=== PATIENT | female | born 1945 | race Caucasian/White ===

== ENCOUNTER → 2024-05-19 14:59 | Outpatient (REF) | payer MEDICARE, OTHER, SELFPAY | LOC: WDC 14:59 | PROVIDERS: ATTENDING PHYSICIAN Physician Assistant | DX: Z12.31 Encounter for screening mammogram for malignant neoplasm of breast (principal) | CPT/HCPCS: 77063; 77067 ==

== ENCOUNTER → 2024-05-20 12:37 | Outpatient (REF) | payer MEDICARE, OTHER, SELFPAY | LOC: EMG 12:37 | PROVIDERS: ATTENDING PHYSICIAN Physician Assistant | DX: R20.0 Anesthesia of skin (principal) | CPT/HCPCS: 95886; 95911 ==

== ENCOUNTER → 2024-06-25 15:08 | Outpatient (REF) | payer MEDICARE, OTHER, SELFPAY ==
[2024-06-25 16:12] LABS: % Eosinophils 1.3 % (0-6); % Immature Granulocytes 0.3 % (0-0.5); % Lymphocytes 46.5 % (20.5-51.1); % Monocytes 15.8 % (1.7-9.3); % Neutrophils 35.1 % (42.2-75.2); Absolute Lymphocytes 1.4 10^3/uL (1.2-3.4); Absolute Monocytes 0.5 10^3/uL (0.1-0.6); Absolute Neutrophils 1.1 10^3/uL (1.4-6.5); Hematocrit 35.6 % (37.0-47.0); Hemoglobin 11.7 g/dL (12.0-16.0); Mean Corp Hgb Conc. 32.9 g/dL (33.0-37.0); Mean Corpuscular Hgb 30.1 pg (27.0-31.0); Mean Corpuscular Volume 91.5 fL (81.0-99.0); Mean Platelet Volume 10.8 fL (7.4-10.4); Nucleated Red Blood Cells % 0 %; Platelet Count 187 10^3/uL (130-400); Red Blood Cell Count 3.89 10^6/uL (4.20-5.40); Red Cell Dist. Width 13.8 % (11.5-14.5); White Blood Cell Count 3.1 10^3/uL (4.8-10.8)
== END ==
LOC: REG 15:08
PROVIDERS: ATTENDING PHYSICIAN Internal Medicine Hematology & Oncology; FAMILY PHYSICIAN Physician Assistant
DX: D70.9 Neutropenia, unspecified (principal); D72.819 Decreased white blood cell count, unspecified
CPT/HCPCS: 36415; 85025

== ENCOUNTER → 2024-07-24 09:52 | Outpatient (REF) | payer MEDICARE, OTHER, SELFPAY ==
[2024-07-24 11:03] LABS: % Basophils 0.7 % (0-2); % Eosinophils 1.5 % (0-6); % Immature Granulocytes 0.4 % (0-0.5); % Lymphocytes 46.3 % (20.5-51.1); % Monocytes 15.6 % (1.7-9.3); % Neutrophils 35.5 % (42.2-75.2); Absolute Lymphocytes 1.3 10^3/uL (1.2-3.4); Absolute Monocytes 0.4 10^3/uL (0.1-0.6); Hematocrit 37.4 % (37.0-47.0); Hemoglobin 12.3 g/dL (12.0-16.0); Mean Corp Hgb Conc. 32.9 g/dL (33.0-37.0); Mean Corpuscular Volume 91.2 fL (81.0-99.0); Nucleated Red Blood Cells % 0 %; Platelet Count 173 10^3/uL (130-400); Red Cell Dist. Width 13.8 % (11.5-14.5); White Blood Cell Count 2.7 10^3/uL (4.8-10.8)
[2024-07-26 07:51] LABS: ANA, IgG Reflex to HEp-2 None Detected (None Detected)
== END ==
LOC: REG 09:52
PROVIDERS: ATTENDING PHYSICIAN Internal Medicine Hematology & Oncology; FAMILY PHYSICIAN Family Medicine
DX: D70.9 Neutropenia, unspecified (principal); D72.819 Decreased white blood cell count, unspecified
CPT/HCPCS: 36415; 85025; 86038; 86430

== ENCOUNTER 2024-10-26 13:23 | Emergency (ER) | payer MEDICARE, OTHER, SELFPAY ==
[2024-10-26 13:31] VITALS: BP 145/65
[2024-10-26 14:08] LABS: Hematocrit 35.1 % (37.0-47.0); Hemoglobin 11.6 g/dL (12.0-16.0); Mean Corp Hgb Conc. 33.0 g/dL (33.0-37.0); Mean Corpuscular Volume 90.2 fL (81.0-99.0); Platelet Count 187 10^3/uL (130-400); Red Cell Dist. Width 13.5 % (11.5-14.5)
[2024-10-26 14:14] LABS: ALT (SGPT) 19 U/L (0-35); AST (SGOT) 31 U/L (14-36); Albumin 4.5 g/dl (3.5-5.0); Alkaline Phosphatase 72 U/L (38-126); Blood Urea Nitrogen 20 mg/dl (7-17); Calcium 9.4 mg/dl (8.4-10.2); Carbon Dioxide 30 mmol/L (22-30); Chloride 105 mmol/L (98-107); Glucose 94 mg/dl (70-99); Potassium 4.1 mmol/L (3.5-5.1); Sodium 138 mmol/L (135-145); Total Protein 6.8 g/dl (6.3-8.2); eGFR > 60.00
[2024-10-26 14:25] LABS: Troponin I < 0.012 ng/ml
[2024-10-26 14:40] LABS: Nucleated Red Blood Cells % 0 %
--- NOTE | 2024-10-26 18:48 | ED.GENMED ---
History of Present Illness
<VINOD Alonso - Last Filed: 10/26/24 19:08>
General
Chief Complaint: Cardiac Symptoms
Source: patient and family (sister)
Time Seen by Provider: 10/26/24 18:35
History of Present Illness
History of Present Illness:
Patient is a 79 y/o F with PMHx of HTN who presents to the ED after experiencing palpitations yesterday night. Patient reports palpitations began about 11pm, lasted for 20 minutes, felt like a flutter or heaviness in her chest. She was able to go to
sleep but awoke again at 3am with right arm tingling, which at that time she took 2 Tylenol and returned to sleep. She awoke this morning feeling more fatigued than usual, mild dizziness but without chest or arm pain. Patient reports the past week
she has been feeling well, and has been doing cleaning and yardwork daily. Patient denies headache, lightheadness, chest pain, abdominal pain, and SOB.
<Melody Osborne DO - Last Filed: 10/26/24 19:40>
History of Present Illness
History of Present Illness:
Patient is a 79 y/o F with PMHx of HTN who presents to the ED after experiencing palpitations yesterday night. Patient reports palpitations began about 11pm, lasted for 20 minutes, felt like a flutter however denies any pain in the chest. She was
able to go to sleep but awoke again at 3am with right arm tingling, which at that time she took 2 Tylenol and returned to sleep. Denies any weakness to the upper extremity. She awoke this morning feeling more fatigued than usual, mild dizziness
but without chest or arm pain. Patient reports the past week she has been feeling well, and has been doing cleaning and yardwork daily. Patient currently denies headache, lightheadness, chest pain, abdominal pain, and SOB. She denies any known
history of cardiac disease. She denies additional acute medical complaints
Past History
<VINOD Alonso - Last Filed: 10/26/24 19:08>
Past History
ED Past Medical History: HTN
ED Past Surgical History: None
Social History
Tobacco: Non-smoker
Alcohol: None
Personal:
Living: with family
Family History
Family History: Other (Noncontributory)
Review of Systems
<Lidia Chsaemichael Pedro [facility] - Last Filed: 10/26/24 19:08>
Review of Systems
Other source history: family (sister)
Constitutional: Reports fatigue
Respiratory: Denies cough or trouble breathing
Cardiac: Denies chest pain, diaphoresis or palpitations
ABD/GI: Denies abdominal pain, nausea, vomiting, diarrhea or constipated
: Reports no symptoms
Musculoskeletal: Denies joint pain, muscle pain or edema
Neurological: Denies dizzy, headache or weakness
Phy Exam
<Lidia Chaseho Willis, [facility] - Last Filed: 10/26/24 19:08>
General Physical Exam
General Presentation: well appearing and no apparent distress
General age: appears stated age
General Skin: warm and dry
General Habitus: normal
General Mental: alert
General Hydration: appears well hydrated
Cardiovascular Exam
Cardiovascular Exam: bradycardia
Heart Sounds: normal
Pulmonary Exam
Pulmonary Exam: lungs clear and no wheezing
Gastrointestinal Exam
Gastrointestinal Exam: normal bowel sounds, non tender, soft and non distended
<Melody Osborne DO - Last Filed: 10/26/24 19:40>
Physical Exam
Physical Exam:
General: Well-appearing, no clinical signs of dehydration, nontoxic and in no acute distress
HEENT: protecting airway
Neck: appears supple
CV: Bradycardic, regular rhythm
Resp: No accessory muscle use, no increased work of breathing, lungs clear to auscultation bilaterally
Abd: Soft and non-distended, no tenderness to palpation
Extremities: No deformities, no swelling
Neuro: alert, no focal neurologic deficit
: deferred
Rectal: deferred
Psych: Normal affect
Skin: Intact
Course
<VINOD Alonso - Last Filed: 10/26/24 19:08>
Orders/Labs/Results
Orders:
Orders
10/26/24 13:24
ECG [Electrocardiogram (*1)] Urgent
Reason for Study: Palpitations
10/26/24 13:25
EKG- Treatment ONCE
10/26/24 13:42
Complete Blood Count/With Diff Urgent
Comprehensive Metabolic Panel Urgent
Troponin I Urgent
Abnormal Lab Results
10/26/24
13:42
WBC 3.2 L 10^3/uL
(4.8-10.8)
RBC 3.89 L 10^6/uL
(4.20-5.40)
Hgb 11.6 L g/dL
(12.0-16.0)
Hct 35.1 L %
(37.0-47.0)
MPV 10.8 H fL
(7.4-10.4)
Absolute Neuts (auto) 1.0 L 10^3/uL
(1.4-6.5)
Neutrophils % 32.0 L %
(42.2-75.2)
Lymphocytes % 51.4 H %
(20.5-51.1)
Monocytes % 14.0 H %
(1.7-9.3)
BUN 20 H mg/dl
(7-17)
10/26/24 13:42
10/26/24 13:42
Vital Signs
Initial and Last Documented VS:
Initial Vital Signs
Temp Pulse Resp BP Pulse Ox
98.4 F 52 16 145/65 98
10/26/24 13:31 10/26/24 13:31 10/26/24 13:31 10/26/24 13:31 10/26/24 13:31
Last Documented Vital Signs
Temp Pulse Resp BP Pulse Ox
98.4 F 52 16 145/65 98
10/26/24 13:31 10/26/24 13:31 10/26/24 13:31 10/26/24 13:31 10/26/24 19:00
<Melody Osborne, - Last Filed: 10/26/24 19:40>
Orders/Labs/Results
Orders:
Orders
10/26/24 13:24
ECG [Electrocardiogram (*1)] Urgent
Reason for Study: Palpitations
10/26/24 13:25
EKG- Treatment ONCE
10/26/24 13:42
Complete Blood Count/With Diff Urgent
Comprehensive Metabolic Panel Urgent
Troponin I Urgent
Abnormal Lab Results
10/26/24
13:42
WBC 3.2 L 10^3/uL
(4.8-10.8)
RBC 3.89 L 10^6/uL
(4.20-5.40)
Hgb 11.6 L g/dL
(12.0-16.0)
Hct 35.1 L %
(37.0-47.0)
MPV 10.8 H fL
(7.4-10.4)
Absolute Neuts (auto) 1.0 L 10^3/uL
(1.4-6.5)
Neutrophils % 32.0 L %
(42.2-75.2)
Lymphocytes % 51.4 H %
(20.5-51.1)
Monocytes % 14.0 H %
(1.7-9.3)
BUN 20 H mg/dl
(7-17)
10/26/24 13:42
10/26/24 13:42
Vital Signs
Initial and Last Documented VS:
Initial Vital Signs
Temp Pulse Resp BP Pulse Ox
98.4 F 52 16 145/65 98
10/26/24 13:31 10/26/24 13:31 10/26/24 13:31 10/26/24 13:31 10/26/24 13:31
Last Documented Vital Signs
Temp Pulse Resp BP Pulse Ox
98.4 F 52 16 145/65 98
10/26/24 13:31 10/26/24 13:31 10/26/24 13:31 10/26/24 13:31 10/26/24 19:00
<VINOD Alonso - Last Filed: 10/26/24 19:08>
MDM/Problems Addressed
Differential Diagnosis Includes:
Differential diagnosis includes but is not limited to:
1.Dehydration
2.hypoglycemia
3.hyperthyroidism
4.Anxiety
5.Cardiac arrhythmia
Chronic conditions affecting care: HTN
<Melody Osborne DO - Last Filed: 10/26/24 19:40>
MDM/Problems Addressed
Differential Diagnosis Includes:
79-year-old female with history of high blood pressure presenting for episode of palpitations. Vital signs on arrival are normal.
On exam patient is resting comfortably, no acute distress or discomfort. She is currently asymptomatic. EKG obtained on arrival, nonischemic, no arrhythmia. Unremarkable cardiac and pulmonary exam. No focal neurologic deficits. Notes that last
evening she had some palpitations and tingling to her right upper extremity which is no resolved. Labs unremarkable, normal electrolytes. At this time patient remains in dynamically stable. Without present concern for ACS or dangerous arrhythmia.
Feel stable for discharge with close and will follow-up with embedded software engineer for potential additional testing such as Holter monitor or stress test. Return precautions discussed and patient verbalized understanding
<VINOD Alonso - Last Filed: 10/26/24 19:08>
*Pulse Oximetry
SaO2: 98
Oxygen Mode of Delivery: Room air
Patient hypoxic: no
*Critical Care Note
Total Time (30-74mins, 75-104mins- exclusive of procedures): Not Applicable
<Melody Osborne DO - Last Filed: 10/26/24 19:40>
*EKG
Interpreted by ED Provider?: Yes
EKG Intrepretation Date: 10/26/24
EKG Intrepretation Time: 19:35
Interpretation: normal
Heart Rate: 51
Rate: bradycardiac
Rhythm: sinus
[place]: normal axis
Interval: normal interval
QRS Pattern: normal QRS
Ischemia: no ischemia
ED Attending Note
<VINOD Alonso - Last Filed: 10/26/24 19:08>
-
Portions of this chart may have been created with voice recognition software.� Occasional wrong word or��sound alike� substitutions may have occurred due to the inherent limitations of voice recognition software.
Discharge Plan
Departure
Patient Disposition: Home (Routine Discharge)
Date of Disposition: 10/26/24
Time of Disposition: 19:29
Patient with high blood pressure during this ER visit?: No
Condition: Good
Discharge Problem:
Heart palpitations
Instructions: Palpitations - ED discharge instructions
Prescriptions:
No Action
aspirin 81 MG tablet,delayed release (DR/EC)
81 mg PO DAILY
lisinopril [Zestril] 10 MG tablet
10 mg PO DAILY
K12 Multivitamin
1 tab PO DAILY
methylprednisolone [Medrol (Ronaldo)] 4 MG tablets,dose pack
4 tab PO . DIRECT Qty: 1 0RF
Referrals:
Derrell Hernández MD [Family Provider, Family Practice]
Elvis Villanueva MD [Active, Cardiology]
Activity Restrictions/Additional Instructions:
You were seen in the emergency department for palpitations
You were found to have reassuring laboratory analysis and EKG. We recommend that you follow-up with a embedded software engineer for potential additional studies such as an stress test or Holter monitor.
Please follow-up closely with your primary care physician.
Return to the emergency department for any worsening of your symptoms, or any development of chest pain, difficulty breathing, abdominal pain with persistent vomiting and inability to tolerate food or liquid by mouth (concern for dehydration),
weakness, headache or confusion, fever greater than 100.4, or any additional symptoms that are concerning to you.
Thank you for choosing [facility].
Interventions
Interventions:
*Risk Screen - Suicide Last Done: 10/26/24 13:31
*Neglect/Abuse Screening Last Done: 10/26/24 13:31
Discharge Date and Time
Print Language: JAPANESE
== END 2024-10-26 20:06 | disposition home or self-care (01) ==
LOC: EMR 13:23
PROVIDERS: Emergency Medicine; EMERGENCY PHYSICIAN Student in an Organized Health Care Education/Training Program; FAMILY PHYSICIAN Family Medicine
DX: R00.2 Palpitations (principal); I10 Essential (primary) hypertension
CPT/HCPCS: 99284; 80053; 84484; 85025; 93005

== ENCOUNTER → 2025-03-09 15:24 | Outpatient (REF) | payer MEDICARE, OTHER, SELFPAY | LOC: RCS 15:24 | PROVIDERS: ATTENDING PHYSICIAN Internal Medicine Cardiovascular Disease; FAMILY PHYSICIAN Physician Assistant | DX: I10 Essential (primary) hypertension (principal); R00.1 Bradycardia, unspecified; R00.2 Palpitations | CPT/HCPCS: 93306 ==